=== PATIENT | male | born 1930 | race Caucasian/White ===

== ENCOUNTER 2017-12-19 09:53 | Inpatient (IN) ==
[2017-12-19] MEDS ORDERED: HYDROmorphone 2 MG/1 ML VIAL ONE (10:37)
[2017-12-19] MEDS ORDERED: ONDANSETRON 4 MG/2 ML VIAL ONE (10:37)
[2017-12-19] MEDS ORDERED: ONDANSETRON 4 MG/2 ML VIAL IV STA (10:46)
[2017-12-19] MEDS ORDERED: HYDROmorphone 2 MG/1 ML VIAL IV STA ×2 (10:47→11:30)
[2017-12-19 12:15] LABS: Basophils % 0.4 % (0.0-0.8); Eosinophils # 0.1 10*3/uL (0.0-0.87); Eosinophils % 1.6 % (0.00-10.9); Hematocrit 37.9 VOL% (42.0-52.0); Hemoglobin 13.1 GM/DL (14.0-18.0); Immature Granulocytes % 0.4 %; Immature Granulocytes Absolute 0.03 #; Lymphocytes # 1.1 10*3/uL (1.4-4.0); Lymphocytes % 15.2 % (21.2-54.2); Mean Corpuscular HGB Conc 34.6 GM/DL (32-36); Mean Corpuscular Hemoglobin 34 PG (27-34); Mean Corpuscular Volume 97.2 FL (87-102); Mean Platelet Volume 12.1 FL (9.6-12.0); Monocytes # 0.6 10*3/uL (0.11-0.8); Neutrophils # 5.4 10*3/uL (1.4-7.4); Neutrophils % 74.4 % (38.7-73.9); Platelet Count 145 T/CUMM (130-400); Red Cell Distribution Width 12.8 % (9.3-17.3); White Blood Count 7.3 T/CUMM (4-12)
[2017-12-19 12:28] LABS: Albumin 3.9 G/DL (3.4-5.0); Bilirubin,Total 0.5 MG/DL (0.2-1.0); Calcium 9.1 MG/DL (8.5-10.1); Osmolality,Calculated 284.4 MOS/KG (273-304); Potassium 3.8 MMOL/L (3.5-5.1); Total Protein 7.2 G/DL (6.4-8.3)
[2017-12-19] MEDS ORDERED: ACETAMINOPHEN 325 MG TABLET PO PRN (14:11)
[2017-12-19] MEDS ORDERED: ONDANSETRON 4 MG/2 ML VIAL IV PRN (14:11)
[2017-12-19] MEDS ORDERED: HYDROmorphone 2 MG/1 ML VIAL IV ONE (15:35)
[2017-12-19] MEDS ORDERED: oxyCODONE IR 5 MG TABLET PO PRN (16:34)
[2017-12-19] MEDS ORDERED: MORPHINE 4 MG/1 ML VIAL ONE (18:58)
[2017-12-19 19:34] LABS: Apearance,Urine CLEAR (Clear); Bilirubin,Urine Negative (Negative); Blood, Urine Moderate mg/dL (Negative); Glucose,Urine (UA) Negative (Negative); Ketones,Urine 5 mg/dL (Negative); Mucus,Urine Occasional /LPF (Occasional); Nitrite,Urine Negative (Negative); Protein,Urine 30 MG/DL; RBC,Urine 27 /HPF (0-4); Squamous Epithelial Cell,Urine Occasional /HPF (0-10); Urine Color Yellow (Yellow); Urine Specific Gravity 1.017 (1.001-1.035); WBC,Urine 1 /HPF (0-6)
[2017-12-19] MEDS ORDERED: ACETAMINOPHEN INJ 1,000 MG in PREMIX 1 EACH IV SCH (22:00)
[2017-12-19] MEDS: MORPHINE 4 MG/1 ML VIAL IV PRN (22:02)
[2017-12-20] MEDS: TEMAZEPAM 15 MG CAPSULE PO PRN ×2 (00:44→21:20)
[2017-12-20] MEDS: DEXTROSE 5% LACTATED RINGERS 1,000 ML IV SCH ×5 (01:20→22:46)
[2017-12-20] MEDS: MORPHINE 4 MG/1 ML VIAL IV PRN ×2 (02:39→06:41)
[2017-12-20 04:01] LABS: Basophils % 0.4 % (0.0-0.8); Eosinophils # 0.1 10*3/uL (0.0-0.87); Eosinophils % 0.7 % (0.00-10.9); Hematocrit 33.3 VOL% (42.0-52.0); Hemoglobin 11.7 GM/DL (14.0-18.0); Immature Granulocytes % 0.2 %; Immature Granulocytes Absolute 0.02 #; Lymphocytes % 11.9 % (21.2-54.2); Mean Corpuscular HGB Conc 35.1 GM/DL (32-36); Mean Corpuscular Hemoglobin 33 PG (27-34); Mean Corpuscular Volume 94.6 FL (87-102); Mean Platelet Volume 11.5 FL (9.6-12.0); Monocytes % 12.4 % (1.7-12.7); Neutrophils # 6.2 10*3/uL (1.4-7.4); Neutrophils % 74.4 % (38.7-73.9); Platelet Count 126 T/CUMM (130-400); Red Blood Count 3.52 MC/CUMM (3.8-5.5); Red Cell Distribution Width 12.8 % (9.3-17.3); White Blood Count 8.3 T/CUMM (4-12)
[2017-12-20 04:12] LABS: PT Patient Result 10.9 SECS; Partial Thromboplastin Time 24.7 SECS (0-40)
[2017-12-20 04:33] LABS: Calcium 8.6 MG/DL (8.5-10.1); Osmolality,Calculated 281.5 MOS/KG (273-304); Risk Ratio 2.75; Thyroid Stimulating Hormone 1.53 uIU/ml (0.358-3.74); VLDL CHOLESTEROL 9.8 MG/DL
[2017-12-20] MEDS ORDERED: VANCOMYCIN INJ 1,000 MG in SODIUM CHLORIDE 0.9% 250 ML IV ONE (06:00)
[2017-12-20] MEDS ORDERED: ceFAZolin 1,000 MG in SYRINGE 1 EACH IV ONE (06:00)
[2017-12-20] MEDS ORDERED: SODIUM CHLORIDE 0.9% 250 ML IV ONE (08:28)
[2017-12-20] MEDS: PANTOPRAZOLE 40 MG TABLET PO SCH (08:54)
[2017-12-20] MEDS ORDERED: ROPIVACAINE 0.5% 30 ML VIAL ONE (09:21)
[2017-12-20] MEDS ORDERED: BACITRACIN OINT 0.9 GM PACK TOP ONE (10:19)
[2017-12-20] MEDS ORDERED: TRANEXAMIC ACID 1,000 MG/10 ML VIAL ONE (10:19)
[2017-12-20] MEDS ORDERED: ACETAMINOPHEN 500 MG TABLET PO SCH (11:30)
[2017-12-20] MEDS ORDERED: ONDANSETRON 4 MG/2 ML VIAL IV PRN (11:38)
[2017-12-20] MEDS ORDERED: oxyCODONE IR 5 MG TABLET PO PRN (11:38)
[2017-12-20] MEDS ORDERED: MAGNESIUM HYDROXIDE SUSP 30 ML UDCUP PO PRN (11:38)
[2017-12-20] MEDS ORDERED: ONDANSETRON 4 MG/2 ML VIAL ONE (11:44)
[2017-12-20] MEDS ORDERED: MIDAZOLAM 2 MG/2 ML VIAL ONE (11:44)
[2017-12-20] MEDS ORDERED: fentaNYL 100 MCG/2 ML VIAL ONE ×2 (11:44→11:45)
[2017-12-20] MEDS ORDERED: SEVOFLURANE 1 UNIT/15 MINUTE INH ONE (11:44)
[2017-12-20] MEDS ORDERED: PROPOFOL 200 MG/20 ML VIAL IV ONE (11:44)
[2017-12-20] MEDS ORDERED: ACETAMINOPHEN 1,000 MG/100 ML VIAL IV ONE (11:44)
[2017-12-20] MEDS ORDERED: PHENYLEPHRINE 1 MG/10 ML SYRINGE IV ONE (11:45)
[2017-12-20] MEDS ORDERED: ROCURONIUM 100 MG/10 ML VIAL IV ONE (11:45)
[2017-12-20] MEDS ORDERED: LACTATED RINGERS 1,000 ML IV ONE (11:45)
[2017-12-20] MEDS: KETOROLAC 15 MG/1 ML VIAL IV SCH ×2 (14:42→21:25)
[2017-12-20] MEDS: ceFAZolin 1,000 MG in SYRINGE 1 EACH IV SCH (14:43)
[2017-12-20] MEDS: ACETAMINOPHEN 500 MG TABLET PO SCH ×2 (14:43→21:20)
[2017-12-20] MEDS ORDERED: LORATADINE 10 MG TABLET PO PRN (15:46)
[2017-12-20] MEDS: DOCUSATE SODIUM 100 MG CAPSULE PO SCH (21:20)
[2017-12-20] MEDS: TERAZOSIN 5 MG CAPSULE PO SCH (21:20)
[2017-12-21] MEDS: ceFAZolin 1,000 MG in SYRINGE 1 EACH IV SCH (00:24)
[2017-12-21] MEDS: DEXTROSE 5% LACTATED RINGERS 1,000 ML IV SCH (01:53)
[2017-12-21] MEDS ORDERED: FONDAPARINUX 2.5 MG/0.5 ML SYRINGE SUBCUT SCH (05:40)
[2017-12-21] MEDS: KETOROLAC 15 MG/1 ML VIAL IV SCH (06:14)
[2017-12-21] MEDS: ACETAMINOPHEN 500 MG TABLET PO SCH (06:15)
[2017-12-21 06:26] LABS: Calcium 7.9 MG/DL (8.5-10.1); Osmolality,Calculated 283.4 MOS/KG (273-304); Potassium 3.9 MMOL/L (3.5-5.1)
[2017-12-21 07:26] LABS: Basophils % 0.3 % (0.0-0.8); Eosinophils # 0.1 10*3/uL (0.0-0.87); Eosinophils % 1.1 % (0.00-10.9); Hematocrit 29.1 VOL% (42.0-52.0); Hemoglobin 9.9 GM/DL (14.0-18.0); Immature Granulocytes % 0.6 %; Immature Granulocytes Absolute 0.05 #; Lymphocytes # 0.6 10*3/uL (1.4-4.0); Lymphocytes % 7.2 % (21.2-54.2); Mean Corpuscular Hemoglobin 34 PG (27-34); Mean Corpuscular Volume 99.7 FL (87-102); Mean Platelet Volume 11.7 FL (9.6-12.0); Monocytes # 1.1 10*3/uL (0.11-0.8); Monocytes % 11.8 % (1.7-12.7); Neutrophils # 7.1 10*3/uL (1.4-7.4); Platelet Count 88 T/CUMM (130-400); Red Blood Count 2.92 MC/CUMM (3.8-5.5); Red Cell Distribution Width 12.6 % (9.3-17.3)
[2017-12-21 07:59] LABS: Platelet Estimate Adequate
[2017-12-21] MEDS ORDERED: MAGNESIUM SULF RIDER 2 GM in PREMIX 1 EACH IV PRN (08:28)
[2017-12-21] MEDS ORDERED: MAGNESIUM SULF RIDER 4 GM in PREMIX 1 EACH IV PRN (08:28)
[2017-12-21] MEDS: PANTOPRAZOLE 40 MG TABLET PO SCH (09:11)
[2017-12-21] MEDS: DOCUSATE SODIUM 100 MG CAPSULE PO SCH ×2 (09:11→21:28)
[2017-12-21] MEDS: MULTIVITAMIN (CENTRUM) TABLET PO SCH (09:11)
[2017-12-21] MEDS: TRANDOLAPRIL 2 MG TABLET PO SCH (09:47)
[2017-12-21] MEDS ORDERED: KETOROLAC 15 MG/1 ML VIAL IV SCH (11:00)
[2017-12-21] MEDS ORDERED: ACETAMINOPHEN 500 MG TABLET PO SCH (11:00)
[2017-12-21] MEDS: MORPHINE 4 MG/1 ML VIAL IV PRN (16:12)
[2017-12-21] MEDS: CELECOXIB 200 MG CAPSULE PO SCH (18:01)
[2017-12-21] MEDS: TEMAZEPAM 15 MG CAPSULE PO PRN (21:27)
[2017-12-21] MEDS: TERAZOSIN 5 MG CAPSULE PO SCH (21:28)
[2017-12-22 03:28] LABS: Basophils % 0.4 % (0.0-0.8); Eosinophils # 0.3 10*3/uL (0.0-0.87); Eosinophils % 4.7 % (0.00-10.9); Hematocrit 26.7 VOL% (42.0-52.0); Hemoglobin 9.1 GM/DL (14.0-18.0); Immature Granulocytes % 0.7 %; Immature Granulocytes Absolute 0.05 #; Lymphocytes # 0.9 10*3/uL (1.4-4.0); Lymphocytes % 12.3 % (21.2-54.2); Mean Corpuscular HGB Conc 34.1 GM/DL (32-36); Mean Corpuscular Hemoglobin 34 PG (27-34); Mean Corpuscular Volume 98.2 FL (87-102); Mean Platelet Volume 11.8 FL (9.6-12.0); Monocytes # 0.8 10*3/uL (0.11-0.8); Monocytes % 11.7 % (1.7-12.7); Neutrophils % 70.2 % (38.7-73.9); Platelet Count 73 T/CUMM (130-400); Red Blood Count 2.72 MC/CUMM (3.8-5.5); Red Cell Distribution Width 12.5 % (9.3-17.3); White Blood Count 7.2 T/CUMM (4-12)
[2017-12-22 04:39] LABS: Band Neutrophils 3 % (0-10); Eosinophils 6 % (0-10); Lymphocytes 15 % (20-55); Segmented Neutrophils 65 % (50-85); Total Cells Counted 100
[2017-12-22 04:41] LABS: Acanthocytes 1+; Anisocytosis 1+; Platelet Estimate Decreased
[2017-12-22] MEDS: CELECOXIB 200 MG CAPSULE PO SCH (09:18)
[2017-12-22] MEDS: DOCUSATE SODIUM 100 MG CAPSULE PO SCH ×2 (09:18→21:03)
[2017-12-22] MEDS: APIXABAN 2.5 MG TABLET PO SCH ×2 (09:19→21:03)
[2017-12-22] MEDS: MULTIVITAMIN (CENTRUM) TABLET PO SCH (09:19)
[2017-12-22] MEDS: PANTOPRAZOLE 40 MG TABLET PO SCH (09:19)
[2017-12-22] MEDS: TRANDOLAPRIL 2 MG TABLET PO SCH (09:19)
[2017-12-22] MEDS ORDERED: POLYETHYLENE GLYCOL POWDER 17 GM PACK PO SCH (21:00)
[2017-12-22] MEDS: TEMAZEPAM 15 MG CAPSULE PO PRN (21:03)
[2017-12-22] MEDS: TERAZOSIN 5 MG CAPSULE PO SCH (21:03)
[2017-12-23 06:27] LABS: Basophils % 0.5 % (0.0-0.8); Eosinophils # 0.4 10*3/uL (0.0-0.87); Eosinophils % 6.7 % (0.00-10.9); Hematocrit 28.8 VOL% (42.0-52.0); Immature Granulocytes % 0.6 %; Immature Granulocytes Absolute 0.04 #; Lymphocytes # 1.2 10*3/uL (1.4-4.0); Lymphocytes % 18.2 % (21.2-54.2); Mean Corpuscular HGB Conc 34.7 GM/DL (32-36); Mean Corpuscular Hemoglobin 34 PG (27-34); Mean Platelet Volume 12.1 FL (9.6-12.0); Monocytes # 0.7 10*3/uL (0.11-0.8); Monocytes % 10.3 % (1.7-12.7); Neutrophils # 4.1 10*3/uL (1.4-7.4); Neutrophils % 63.7 % (38.7-73.9); Platelet Count 92 T/CUMM (130-400); Red Blood Count 2.97 MC/CUMM (3.8-5.5); Red Cell Distribution Width 12.3 % (9.3-17.3); White Blood Count 6.4 T/CUMM (4-12)
[2017-12-23 07:09] LABS: Anisocytosis 1+; Platelet Estimate Decreased; Poikilocytosis 1+
[2017-12-23] MEDS: MULTIVITAMIN (CENTRUM) TABLET PO SCH (10:22)
[2017-12-23] MEDS: PANTOPRAZOLE 40 MG TABLET PO SCH (10:22)
[2017-12-23] MEDS: APIXABAN 2.5 MG TABLET PO SCH (10:23)
[2017-12-23] MEDS: TRANDOLAPRIL 2 MG TABLET PO SCH (10:23)
[2017-12-23] MEDS: CELECOXIB 200 MG CAPSULE PO SCH (10:23)
[2017-12-23] MEDS: DOCUSATE SODIUM 100 MG CAPSULE PO SCH (10:26)
[2017-12-23 12:24] VITALS: BP 106/51
== END 2017-12-23 15:46 | disposition home health service (06) | DRG 470 ==
LOC: N.ED 09:53 → N.EDINP 12:45 → N.3E 14:11
PROVIDERS: ADMIT Internal Medicine; ATTEND Internal Medicine

== ENCOUNTER 2019-05-18 21:30 | Inpatient (IN) ==
[2019-05-18] MEDS ORDERED: MORPHINE 4 MG/1 ML VIAL IV STA (21:54)
[2019-05-18 22:40] LABS: Basophils % 0.4 % (0.0-0.8); Eosinophils # 0.1 10*3/uL (0.0-0.87); Eosinophils % 1.3 % (0.00-10.9); Hematocrit 34.8 VOL% (42.0-52.0); Hemoglobin 11.3 GM/DL (14.0-18.0); Immature Granulocytes % 0.4 %; Immature Granulocytes Absolute 0.03 #; Lymphocytes # 0.9 10*3/uL (1.4-4.0); Lymphocytes % 12.6 % (21.2-54.2); Mean Corpuscular HGB Conc 32.5 GM/DL (32-36); Mean Platelet Volume 11.5 FL (9.6-12.0); Monocytes % 7.1 % (1.7-12.7); Neutrophils % 78.2 % (38.7-73.9); Platelet Count 127 T/CUMM (130-400); Red Blood Count 3.55 MC/CUMM (3.8-5.5); Red Cell Distribution Width 13.8 % (9.3-17.3); White Blood Count 6.9 T/CUMM (4-12)
[2019-05-18 22:48] LABS: INR 1.1; PT Patient Result 11.7 SECS (9.6-12.2)
[2019-05-18 23:19] LABS: Calcium 9.4 MG/DL (8.5-10.1); Osmolality,Calculated 288.3 MOS/KG (273-304)
[2019-05-18] MEDS ORDERED: HYDROmorphone 2 MG/1 ML VIAL IV STA (23:36)
[2019-05-19] MEDS ORDERED: ACETAMINOPHEN 325 MG TABLET PO PRN ×2 (01:30→08:20)
[2019-05-19] MEDS ORDERED: DOCUSATE SODIUM 100 MG CAPSULE PO PRN (01:30)
[2019-05-19] MEDS ORDERED: SODIUM CHLORIDE 0.9% 1,000 ML IV SCH (01:30)
[2019-05-19] MEDS ORDERED: ONDANSETRON 4 MG/2 ML VIAL IV PRN ×2 (01:30→12:18)
[2019-05-19] MEDS: HYDROmorphone 2 MG/1 ML VIAL IV PRN ×2 (02:48→06:09)
[2019-05-19 06:22] LABS: Basophils % 0.1 % (0.0-0.8); Hematocrit 33.7 VOL% (42.0-52.0); Hemoglobin 11.1 GM/DL (14.0-18.0); Immature Granulocytes % 0.5 %; Immature Granulocytes Absolute 0.04 #; Lymphocytes # 0.3 10*3/uL (1.4-4.0); Lymphocytes % 3.5 % (21.2-54.2); Mean Corpuscular HGB Conc 32.9 GM/DL (32-36); Mean Corpuscular Volume 97.7 FL (87-102); Mean Platelet Volume 11.8 FL (9.6-12.0); Monocytes % 7.1 % (1.7-12.7); Neutrophils % 88.8 % (38.7-73.9); Platelet Count 135 T/CUMM (130-400); Red Blood Count 3.45 MC/CUMM (3.8-5.5); White Blood Count 7.8 T/CUMM (4-12)
[2019-05-19] MEDS ORDERED: ceFAZolin 2,000 MG in PREMIX 1 EACH IV ONE (06:31)
[2019-05-19 06:46] LABS: Acanthocytes Few; Band Neutrophils 1 % (0-10); Lymphocytes 3 % (20-55); Segmented Neutrophils 90 % (50-85); Total Cells Counted 100
[2019-05-19 06:47] LABS: Macrocytosis Slight; Platelet Estimate Adequate
[2019-05-19 06:51] LABS: Albumin 3.8 G/DL (3.4-5.0); Calcium 9.1 MG/DL (8.5-10.1); Osmolality,Calculated 290.3 MOS/KG (273-304)
[2019-05-19] MEDS ORDERED: RANITIDINE 150 MG TABLET PO ONE (08:19)
[2019-05-19 10:04] LABS: Osmolality,Calculated 288.4 MOS/KG (273-304)
[2019-05-19] MEDS ORDERED: BACITRACIN OINT 0.9 GM PACK TOP ONE (11:10)
[2019-05-19] MEDS ORDERED: MAGNESIUM HYDROXIDE SUSP 30 ML UDCUP PO PRN (11:39)
[2019-05-19] MEDS ORDERED: MORPHINE 4 MG/1 ML VIAL IV PRN ×2 (11:40)
[2019-05-19] MEDS ORDERED: LIDOCAINE 2% 5 ML VIAL ONE (11:51)
[2019-05-19] MEDS ORDERED: propofoL 200 MG/20 ML VIAL IV ONE (11:51)
[2019-05-19] MEDS ORDERED: SEVOFLURANE 1 UNIT/15 MINUTE INH ONE (11:51)
[2019-05-19] MEDS ORDERED: GLYCOPYRROLATE 0.4 MG/2 ML VIAL ONE (11:52)
[2019-05-19] MEDS ORDERED: ROCURONIUM 100 MG/10 ML VIAL IV ONE (11:52)
[2019-05-19] MEDS ORDERED: ONDANSETRON 4 MG/2 ML VIAL ONE (11:52)
[2019-05-19] MEDS ORDERED: NEOSTIGMINE 10 MG/10 ML VIAL ONE (11:52)
[2019-05-19] MEDS ORDERED: fentaNYL 100 MCG/2 ML VIAL ONE (11:52)
[2019-05-19] MEDS ORDERED: HYDROmorphone 2 MG/1 ML VIAL ONE (12:16)
[2019-05-19] MEDS ORDERED: HYDROmorphone 2 MG/1 ML VIAL IV PRN (12:18)
[2019-05-19] MEDS: KETOROLAC 15 MG/1 ML VIAL IV SCH ×2 (13:49→17:36)
[2019-05-19] MEDS: LACTATED RINGERS 1,000 ML IV SCH (13:50)
[2019-05-19] MEDS: ceFAZolin 2,000 MG in PREMIX 1 EACH IV SCH (17:37)
[2019-05-20] MEDS: ceFAZolin 2,000 MG in PREMIX 1 EACH IV SCH (00:04)
[2019-05-20] MEDS: KETOROLAC 15 MG/1 ML VIAL IV SCH ×2 (00:04→05:27)
[2019-05-20] MEDS: LACTATED RINGERS 1,000 ML IV SCH ×2 (02:48→19:27)
[2019-05-20 05:59] LABS: Basophils % 0.6 % (0.0-0.8); Eosinophils # 0.1 10*3/uL (0.0-0.87); Eosinophils % 2.1 % (0.00-10.9); Hematocrit 28.4 VOL% (42.0-52.0); Immature Granulocytes % 0.7 %; Immature Granulocytes Absolute 0.05 #; Lymphocytes # 1.1 10*3/uL (1.4-4.0); Lymphocytes % 16.8 % (21.2-54.2); Mean Corpuscular HGB Conc 31.7 GM/DL (32-36); Mean Corpuscular Volume 101.4 FL (87-102); Mean Platelet Volume 11.4 FL (9.6-12.0); Monocytes % 14.4 % (1.7-12.7); Neutrophils % 65.4 % (38.7-73.9); White Blood Count 6.7 T/CUMM (4-12)
[2019-05-20 06:17] LABS: Calcium 8.4 MG/DL (8.5-10.1); Osmolality,Calculated 287.4 MOS/KG (273-304)
[2019-05-20 06:27] LABS: Platelet Count 100 T/CUMM (130-400)
[2019-05-20] MEDS ORDERED: APIXABAN 2.5 MG TABLET PO SCH (09:00)
[2019-05-20] MEDS: RIVAROXABAN 10 MG TABLET PO SCH (09:44)
[2019-05-21 06:21] LABS: Basophils # 0.1 10*3/uL (0.0-0.2); Basophils % 0.7 % (0.0-0.8); Eosinophils # 0.3 10*3/uL (0.0-0.87); Eosinophils % 3.7 % (0.00-10.9); Hematocrit 26.1 VOL% (42.0-52.0); Hemoglobin 8.7 GM/DL (14.0-18.0); Immature Granulocytes % 0.4 %; Immature Granulocytes Absolute 0.03 #; Lymphocytes # 1.3 10*3/uL (1.4-4.0); Lymphocytes % 17.6 % (21.2-54.2); Mean Corpuscular HGB Conc 33.3 GM/DL (32-36); Mean Corpuscular Volume 98.9 FL (87-102); Mean Platelet Volume 11.9 FL (9.6-12.0); Monocytes % 14.2 % (1.7-12.7); Neutrophils % 63.4 % (38.7-73.9); Red Blood Count 2.64 MC/CUMM (3.8-5.5); Red Cell Distribution Width 13.5 % (9.3-17.3); White Blood Count 7.5 T/CUMM (4-12)
[2019-05-21 06:30] LABS: Platelet Count 88 T/CUMM (130-400)
[2019-05-21 06:43] LABS: Acanthocytes Few
[2019-05-21 06:44] LABS: Hypochromasia 1+; Macrocytosis Slight; Platelet Estimate Decreased
[2019-05-21 06:45] LABS: Ovalocytes Few
[2019-05-21 08:36] LABS: Calcium 8.3 MG/DL (8.5-10.1); Osmolality,Calculated 279.8 MOS/KG (273-304)
[2019-05-21] MEDS: RIVAROXABAN 10 MG TABLET PO SCH (10:57)
[2019-05-21 11:34] LABS: Hematocrit 25.5 VOL% (42.0-52.0); Hemoglobin 8.3 GM/DL (14.0-18.0)
[2019-05-21 19:08] LABS: Hematocrit 27.3 VOL% (42.0-52.0); Hemoglobin 8.9 GM/DL (14.0-18.0)
[2019-05-22 05:35] LABS: Basophils % 0.4 % (0.0-0.8); Eosinophils # 0.3 10*3/uL (0.0-0.87); Eosinophils % 5.1 % (0.00-10.9); Hematocrit 24.7 VOL% (42.0-52.0); Hemoglobin 8.4 GM/DL (14.0-18.0); Immature Granulocytes % 0.1 %; Immature Granulocytes Absolute 0.01 #; Lymphocytes % 15.1 % (21.2-54.2); Mean Corpuscular Volume 96.5 FL (87-102); Mean Platelet Volume 11.8 FL (9.6-12.0); Monocytes % 15.2 % (1.7-12.7); Neutrophils % 64.1 % (38.7-73.9); Platelet Count 94 T/CUMM (130-400); Red Blood Count 2.56 MC/CUMM (3.8-5.5); Red Cell Distribution Width 13.2 % (9.3-17.3); White Blood Count 6.7 T/CUMM (4-12)
[2019-05-22 06:04] LABS: Eosinophils 7 % (0-10); Hypochromasia 1+; Lymphocytes 12 % (20-55); Segmented Neutrophils 69 % (50-85); Total Cells Counted 100
[2019-05-22 06:05] LABS: Acanthocytes Few; Macrocytosis Slight; Ovalocytes Slight; Platelet Estimate Decreased
[2019-05-22] MEDS ORDERED: RIVAROXABAN 10 MG TABLET PO SCH (09:00)
[2019-05-22 10:52] LABS: Hematocrit 27.6 VOL% (42.0-52.0); Hemoglobin 9.1 GM/DL (14.0-18.0)
[2019-05-22] MEDS: TERAZOSIN 5 MG CAPSULE PO SCH (16:47)
[2019-05-22] MEDS: lisinopriL 5 MG TABLET PO SCH (16:47)
[2019-05-22 20:20] LABS: Apearance,Urine CLEAR (Clear); Bilirubin,Urine Negative (Negative); Blood, Urine Moderate mg/dL (Negative); Glucose,Urine (UA) Negative (Negative); Hyaline Casts,Urine 1 /LPF (0-3); Ketones,Urine Negative (Negative); Mucus,Urine Few /LPF (Occasional); Nitrite,Urine Negative (Negative); Protein,Urine 30 MG/DL; RBC,Urine 12 /HPF (0-4); Squamous Epithelial Cell,Urine Occasional /HPF (0-10); Urine Color Dark Yellow (Yellow); Urine Specific Gravity 1.023 (1.001-1.035); WBC,Urine 1 /HPF (0-6)
[2019-05-23] MEDS: TERAZOSIN 5 MG CAPSULE PO SCH (08:28)
[2019-05-23] MEDS: lisinopriL 5 MG TABLET PO SCH (08:28)
[2019-05-23] MEDS ORDERED: GLYCERIN ADULT SUPP RECTAL ONE (09:54)
[2019-05-23 11:56] VITALS: BP 119/61
== END 2019-05-23 13:50 | disposition swing bed (61) | DRG 481 ==
LOC: EDUNIT# → EDBD → N.ED 21:30 → N.EDINP 23:38 → N.3E 05-19 00:28
PROVIDERS: ADMIT Family Medicine; ATTEND Family Medicine

== ENCOUNTER 2020-07-24 13:07 | Inpatient (IN) ==
[2020-07-24] MEDS ORDERED: MORPHINE 4 MG/1 ML VIAL IV STA (15:36)
[2020-07-24] MEDS ORDERED: ONDANSETRON 4 MG/2 ML VIAL IV STA (15:37)
[2020-07-24] MEDS ORDERED: ONDANSETRON 4 MG/2 ML VIAL ONE (15:37)
[2020-07-24] MEDS ORDERED: MORPHINE 4 MG/1 ML VIAL ONE (15:38)
[2020-07-24] MEDS ORDERED: ONDANSETRON 4 MG/2 ML VIAL IV PRN (15:39)
[2020-07-24] MEDS ORDERED: ACETAMINOPHEN 325 MG TABLET PO PRN (15:39)
[2020-07-24] MEDS ORDERED: DEXTROSE 50% 25 GM/50 ML VIAL IV PRN (15:39)
[2020-07-24] MEDS ORDERED: GLUCAGON 1 MG VIAL IM PRN (15:39)
[2020-07-24 16:06] LABS: INR 1.1; PT Patient Result 11.7 SECS (10.5-12.0); Partial Thromboplastin Time 25.5 SECS (23.9-33.8)
[2020-07-24] MEDS: PANTOPRAZOLE 40 MG TABLET PO SCH (16:38)
[2020-07-24] MEDS: ENOXAPARIN 40 MG/0.4 ML SYRINGE SUBCUT SCH (16:38)
[2020-07-24 17:05] LABS: Bilirubin,Urine Negative (Negative); Blood, Urine Negative (Negative); Glucose,Urine (UA) Negative (Negative); Hyaline Casts,Urine 3 /LPF (0-3); Ketones,Urine Negative (Negative); Mucus,Urine Occasional /LPF (Occasional); Nitrite,Urine Negative (Negative); Protein,Urine Negative; Squamous Epithelial Cell,Urine Occasional /HPF (0-10); Urine Appearance CLEAR (Clear); Urine Color Yellow (Yellow); Urine Specific Gravity 1.017 (1.001-1.035)
[2020-07-24] MEDS: SODIUM CHLORIDE 0.9% 1,000 ML IV SCH (17:28)
[2020-07-25] MEDS: SODIUM CHLORIDE 0.9% 1,000 ML IV SCH ×3 (03:11→17:58)
[2020-07-25 05:12] LABS: Basophils # 0.1 10*3/uL (0.0-0.2); Eosinophils # 0.1 10*3/uL (0.0-0.87); Eosinophils % 2.8 % (0.00-10.9); Hematocrit 29.6 VOL% (42.0-52.0); Hemoglobin 8.7 GM/DL (14.0-18.0); Immature Granulocytes % 0.6 %; Immature Granulocytes Absolute 0.03 #; Lymphocytes # 1.1 10*3/uL (1.4-4.0); Lymphocytes % 22.7 % (21.2-54.2); Mean Corpuscular HGB Conc 29.4 GM/DL (32-36); Mean Corpuscular Volume 99.7 FL (87-102); Mean Platelet Volume 12.3 FL (9.6-12.0); Monocytes % 20.3 % (1.7-12.7); Neutrophils % 52.6 % (38.7-73.9); Platelet Count 103 T/CUMM (130-400); Red Blood Count 2.97 MC/CUMM (3.8-5.5)
[2020-07-25 05:36] LABS: Albumin 2.7 G/DL (3.4-5.0); Bilirubin,Total 1.2 MG/DL (0.2-1.0); Calcium 8.2 MG/DL (8.5-10.1); Osmolality,Calculated 278.7 MOS/KG (273-304); Potassium 3.7 MMOL/L (3.5-5.1); Total Protein 5.7 G/DL (6.4-8.2)
[2020-07-25 05:48] LABS: Band Neutrophils 1 % (0-10); Burr Cells Slight; Eosinophils 3 % (0-10); Hypochromasia 1+; Lymphocytes 21 % (20-55); Microcytosis 1+; Ovalocytes Slight; Platelet Estimate Decreased; Segmented Neutrophils 59 % (50-85); Total Cells Counted 100
[2020-07-25] MEDS: TERAZOSIN 5 MG CAPSULE PO SCH ×2 (06:10→20:50)
[2020-07-25] MEDS: PANTOPRAZOLE 40 MG TABLET PO SCH (09:53)
[2020-07-25] MEDS: hydroCHLOROthiazide 12.5 MG CAPSULE PO SCH (09:53)
[2020-07-25] MEDS: lisinopriL 5 MG TABLET PO SCH (09:53)
[2020-07-25] MEDS: ENOXAPARIN 40 MG/0.4 ML SYRINGE SUBCUT SCH (15:51)
[2020-07-26] MEDS: SODIUM CHLORIDE 0.9% 1,000 ML IV SCH ×4 (00:47→21:30)
[2020-07-26 05:26] LABS: Eosinophils # 0.2 10*3/uL (0.0-0.87); Eosinophils % 4.9 % (0.00-10.9); Hematocrit 23.3 VOL% (42.0-52.0); Hemoglobin 7.6 GM/DL (14.0-18.0); Immature Granulocytes % 0.3 %; Immature Granulocytes Absolute 0.01 #; Lymphocytes % 25.8 % (21.2-54.2); Mean Corpuscular HGB Conc 32.6 GM/DL (32-36); Mean Corpuscular Volume 92.5 FL (87-102); Mean Platelet Volume 11.9 FL (9.6-12.0); Monocytes % 16.1 % (1.7-12.7); Neutrophils % 51.9 % (38.7-73.9); Platelet Count 86 T/CUMM (130-400); Red Blood Count 2.52 MC/CUMM (3.8-5.5); Red Cell Distribution Width 20.1 % (9.3-17.3); White Blood Count 3.9 T/CUMM (4-12)
[2020-07-26 05:50] LABS: Albumin 2.5 G/DL (3.4-5.0); Bilirubin,Total 1.1 MG/DL (0.2-1.0); Calcium 7.9 MG/DL (8.5-10.1); Osmolality,Calculated 276.7 MOS/KG (273-304); Potassium 3.6 MMOL/L (3.5-5.1); Total Protein 5.2 G/DL (6.4-8.2)
[2020-07-26 05:52] LABS: Eosinophils 4 % (0-10); Hypochromasia 2+; Lymphocytes 32 % (20-55); Microcytosis 1+; Ovalocytes Slight; Platelet Estimate Decreased; Segmented Neutrophils 52 % (50-85); Total Cells Counted 100
[2020-07-26] MEDS: hydroCHLOROthiazide 12.5 MG CAPSULE PO SCH (09:19)
[2020-07-26] MEDS: PANTOPRAZOLE 40 MG TABLET PO SCH (09:19)
[2020-07-26] MEDS: lisinopriL 5 MG TABLET PO SCH (09:20)
[2020-07-26 10:06] LABS: % Iron Saturation 9.9 % (18-50)
[2020-07-26 10:17] LABS: Eosinophils # 0.2 10*3/uL (0.0-0.87); Eosinophils % 4.1 % (0.00-10.9); Hematocrit 25.7 VOL% (42.0-52.0); Hemoglobin 7.8 GM/DL (14.0-18.0); Immature Granulocytes % 0.5 %; Immature Granulocytes Absolute 0.02 #; Lymphocytes # 1.1 10*3/uL (1.4-4.0); Lymphocytes % 26.2 % (21.2-54.2); Mean Corpuscular HGB Conc 30.4 GM/DL (32-36); Mean Platelet Volume 12.2 FL (9.6-12.0); Neutrophils % 52.2 % (38.7-73.9); Red Blood Count 2.65 MC/CUMM (3.8-5.5); White Blood Count 4.1 T/CUMM (4-12)
[2020-07-26 10:18] LABS: Platelet Count 100 T/CUMM (130-400)
[2020-07-26 10:37] LABS: Folate 12.72 NG/ML (5.38-24.0); Vitamin B12 208 PG/ML (211-911)
[2020-07-26 10:41] LABS: Burr Cells Slight; Eosinophils 5 % (0-10); Hypochromasia 1+; Lymphocytes 28 % (20-55); Microcytosis 1+; Ovalocytes Slight; Platelet Estimate Decreased; Segmented Neutrophils 57 % (50-85); Total Cells Counted 100
[2020-07-26 11:15] LABS: Sedimentation Rate-Westergren 38 MM/HR (0-20)
[2020-07-26 12:48] LABS: Hemoglobin A1 (Alkaline) 97.7 % (96.5-98.5); Hemoglobin A2 (Alkaline) 2.3 % (1.5-3.5)
[2020-07-26] MEDS ORDERED: ZINC OXIDE PASTE 113 GM TUBE TOP PRN (15:41)
[2020-07-26] MEDS: ENOXAPARIN 40 MG/0.4 ML SYRINGE SUBCUT SCH (15:57)
[2020-07-27] MEDS: SODIUM CHLORIDE 0.9% 1,000 ML IV SCH ×2 (04:00→17:08)
[2020-07-27 05:30] LABS: Basophils % 0.7 % (0.0-0.8); Eosinophils # 0.1 10*3/uL (0.0-0.87); Eosinophils % 3.4 % (0.00-10.9); Hematocrit 23.9 VOL% (42.0-52.0); Hemoglobin 7.5 GM/DL (14.0-18.0); Immature Granulocytes % 0.5 %; Immature Granulocytes Absolute 0.02 #; Lymphocytes # 0.9 10*3/uL (1.4-4.0); Lymphocytes % 22.4 % (21.2-54.2); Mean Corpuscular HGB Conc 31.4 GM/DL (32-36); Mean Corpuscular Volume 92.6 FL (87-102); Mean Platelet Volume 11.8 FL (9.6-12.0); Monocytes % 15.4 % (1.7-12.7); Neutrophils % 57.6 % (38.7-73.9); Platelet Count 100 T/CUMM (130-400); Red Blood Count 2.58 MC/CUMM (3.8-5.5); Red Cell Distribution Width 19.9 % (9.3-17.3); White Blood Count 4.1 T/CUMM (4-12)
[2020-07-27 05:56] LABS: Albumin 2.2 G/DL (3.4-5.0); Calcium 8.2 MG/DL (8.5-10.1); Osmolality,Calculated 280.4 MOS/KG (273-304); Potassium 3.5 MMOL/L (3.5-5.1); Total Protein 5.2 G/DL (6.4-8.2)
[2020-07-27] MEDS: lisinopriL 5 MG TABLET PO SCH (09:10)
[2020-07-27] MEDS: CYANOCOBALAMIN 500 MCG TABLET PO SCH (09:10)
[2020-07-27] MEDS: PANTOPRAZOLE 40 MG TABLET PO SCH (09:10)
[2020-07-27] MEDS: hydroCHLOROthiazide 12.5 MG CAPSULE PO SCH (09:10)
[2020-07-27] MEDS: FERROUS SULFATE 325 MG TABLET PO SCH ×2 (11:46→17:07)
[2020-07-27 19:50] LABS: Hematocrit 28.5 VOL% (42.0-52.0); Hemoglobin 9.1 GM/DL (14.0-18.0)
[2020-07-27] MEDS: TERAZOSIN 5 MG CAPSULE PO SCH (21:37)
[2020-07-28 05:28] LABS: Basophils % 0.9 % (0.0-0.8); Eosinophils # 0.2 10*3/uL (0.0-0.87); Eosinophils % 4.1 % (0.00-10.9); Hemoglobin 9.3 GM/DL (14.0-18.0); Immature Granulocytes % 0.2 %; Immature Granulocytes Absolute 0.01 #; Lymphocytes % 22.7 % (21.2-54.2); Mean Corpuscular HGB Conc 33.2 GM/DL (32-36); Mean Corpuscular Volume 89.5 FL (87-102); Mean Platelet Volume 11.5 FL (9.6-12.0); Monocytes % 13.3 % (1.7-12.7); Neutrophils % 58.8 % (38.7-73.9); Platelet Count 108 T/CUMM (130-400); Red Cell Distribution Width 19.7 % (9.3-17.3); White Blood Count 4.4 T/CUMM (4-12)
[2020-07-28 05:30] LABS: Red Blood Count 3.13 MC/CUMM (3.8-5.5)
[2020-07-28 05:39] LABS: Hypochromasia 1+; Microcytosis 1+; Platelet Estimate Decreased
[2020-07-28] MEDS: DOCUSATE SODIUM 100 MG CAPSULE PO PRN (09:05)
[2020-07-28] MEDS: FERROUS SULFATE 325 MG TABLET PO SCH ×2 (09:05→16:42)
[2020-07-28] MEDS: CYANOCOBALAMIN 500 MCG TABLET PO SCH (09:05)
[2020-07-28] MEDS: CHOLECALCIFEROL 1,000 UNIT TABLET PO SCH (09:05)
[2020-07-28] MEDS: PANTOPRAZOLE 40 MG TABLET PO SCH (09:05)
[2020-07-28] MEDS: lisinopriL 5 MG TABLET PO SCH (09:05)
[2020-07-28] MEDS: POLYETHYLENE GLYCOL POWDER 17 GM PACK PO SCH (10:20)
[2020-07-28] MEDS: FLUDROCORTISONE 0.1 MG TABLET PO SCH (10:26)
[2020-07-28] MEDS: SODIUM CHLORIDE 0.9% 1,000 ML IV SCH (13:14)
[2020-07-28] MEDS: ENOXAPARIN 40 MG/0.4 ML SYRINGE SUBCUT SCH (16:42)
[2020-07-28] MEDS: TERAZOSIN 5 MG CAPSULE PO SCH (21:28)
[2020-07-29] MEDS: ASPIRIN EC 81 MG TABLET PO SCH (09:04)
[2020-07-29] MEDS: DOCUSATE SODIUM 100 MG CAPSULE PO PRN (09:04)
[2020-07-29] MEDS: PANTOPRAZOLE 40 MG TABLET PO SCH (09:05)
[2020-07-29] MEDS: CYANOCOBALAMIN 500 MCG TABLET PO SCH (09:05)
[2020-07-29] MEDS: FERROUS SULFATE 325 MG TABLET PO SCH ×2 (09:05→16:57)
[2020-07-29] MEDS: FLUDROCORTISONE 0.1 MG TABLET PO SCH (09:05)
[2020-07-29] MEDS: CHOLECALCIFEROL 1,000 UNIT TABLET PO SCH (09:05)
[2020-07-29] MEDS: lisinopriL 5 MG TABLET PO SCH (09:06)
[2020-07-29] MEDS: SODIUM CHLORIDE 0.9% 1,000 ML IV SCH (09:12)
[2020-07-29] MEDS: POLYETHYLENE GLYCOL POWDER 17 GM PACK PO SCH (09:15)
[2020-07-29] MEDS: ENOXAPARIN 40 MG/0.4 ML SYRINGE SUBCUT SCH (16:57)
[2020-07-29] MEDS: TERAZOSIN 5 MG CAPSULE PO SCH (21:24)
[2020-07-30] MEDS: PANTOPRAZOLE 40 MG TABLET PO SCH (08:49)
[2020-07-30] MEDS: FERROUS SULFATE 325 MG TABLET PO SCH ×2 (08:49→18:22)
[2020-07-30] MEDS: FLUDROCORTISONE 0.1 MG TABLET PO SCH (08:49)
[2020-07-30] MEDS: DOCUSATE SODIUM 100 MG CAPSULE PO PRN (08:49)
[2020-07-30] MEDS: lisinopriL 5 MG TABLET PO SCH (08:50)
[2020-07-30] MEDS: CHOLECALCIFEROL 1,000 UNIT TABLET PO SCH (08:50)
[2020-07-30] MEDS: ASPIRIN EC 81 MG TABLET PO SCH (08:50)
[2020-07-30] MEDS: CYANOCOBALAMIN 500 MCG TABLET PO SCH (08:50)
[2020-07-30 09:09] LABS: Basophils % 0.9 % (0.0-0.8); Eosinophils # 0.2 10*3/uL (0.0-0.87); Eosinophils % 4.6 % (0.00-10.9); Hematocrit 30.3 VOL% (42.0-52.0); Hemoglobin 9.5 GM/DL (14.0-18.0); Immature Granulocytes % 0.5 %; Immature Granulocytes Absolute 0.02 #; Lymphocytes # 0.8 10*3/uL (1.4-4.0); Lymphocytes % 17.4 % (21.2-54.2); Mean Corpuscular HGB Conc 31.4 GM/DL (32-36); Mean Corpuscular Volume 92.1 FL (87-102); Mean Platelet Volume 11.5 FL (9.6-12.0); Monocytes % 11.2 % (1.7-12.7); Neutrophils % 65.4 % (38.7-73.9); Platelet Count 156 T/CUMM (130-400); Red Blood Count 3.29 MC/CUMM (3.8-5.5); Red Cell Distribution Width 19.1 % (9.3-17.3); White Blood Count 4.4 T/CUMM (4-12)
[2020-07-30] MEDS: WHEAT DEXTRIN POWDER 244 GM BOTTLE PO SCH (09:24)
[2020-07-30] MEDS: POLYETHYLENE GLYCOL POWDER 17 GM PACK PO SCH (09:24)
[2020-07-30 09:39] LABS: Calcium 8.8 MG/DL (8.5-10.1); Potassium 3.4 MMOL/L (3.5-5.1)
[2020-07-30] MEDS ORDERED: POTASSIUM CHLORIDE 20 MEQ TABLET PO ONE (10:30)
[2020-07-30] MEDS: ENOXAPARIN 40 MG/0.4 ML SYRINGE SUBCUT SCH (18:22)
[2020-07-30] MEDS: TERAZOSIN 5 MG CAPSULE PO SCH (21:35)
[2020-07-31] MEDS: POLYETHYLENE GLYCOL POWDER 17 GM PACK PO SCH (09:19)
[2020-07-31] MEDS: ASPIRIN EC 81 MG TABLET PO SCH (09:20)
[2020-07-31] MEDS: lisinopriL 5 MG TABLET PO SCH (09:21)
[2020-07-31] MEDS: CHOLECALCIFEROL 1,000 UNIT TABLET PO SCH (09:21)
[2020-07-31] MEDS: PANTOPRAZOLE 40 MG TABLET PO SCH (09:22)
[2020-07-31] MEDS: FERROUS SULFATE 325 MG TABLET PO SCH ×2 (09:22→16:43)
[2020-07-31] MEDS: CYANOCOBALAMIN 500 MCG TABLET PO SCH (09:22)
[2020-07-31] MEDS: FLUDROCORTISONE 0.1 MG TABLET PO SCH (09:23)
[2020-07-31] MEDS: WHEAT DEXTRIN POWDER 244 GM BOTTLE PO SCH (11:51)
[2020-07-31] MEDS: ENOXAPARIN 40 MG/0.4 ML SYRINGE SUBCUT SCH (16:30)
[2020-07-31] MEDS: TERAZOSIN 5 MG CAPSULE PO SCH (21:13)
[2020-08-01] MEDS ORDERED: POTASSIUM CHLORIDE 20 MEQ TABLET PO ONE (07:47)
[2020-08-01 08:50] LABS: Basophils % 1.2 % (0.0-0.8); Eosinophils # 0.2 10*3/uL (0.0-0.87); Eosinophils % 5.6 % (0.00-10.9); Hematocrit 29.9 VOL% (42.0-52.0); Hemoglobin 9.4 GM/DL (14.0-18.0); Immature Granulocytes % 0.3 %; Immature Granulocytes Absolute 0.01 #; Lymphocytes # 0.8 10*3/uL (1.4-4.0); Lymphocytes % 23.9 % (21.2-54.2); Mean Corpuscular HGB Conc 31.4 GM/DL (32-36); Mean Corpuscular Volume 93.4 FL (87-102); Mean Platelet Volume 11.4 FL (9.6-12.0); Monocytes % 10.3 % (1.7-12.7); Neutrophils % 58.7 % (38.7-73.9); Platelet Count 169 T/CUMM (130-400); Red Cell Distribution Width 19.3 % (9.3-17.3); White Blood Count 3.4 T/CUMM (4-12)
[2020-08-01 09:05] LABS: Calcium 8.9 MG/DL (8.5-10.1); Osmolality,Calculated 289.8 MOS/KG (273-304); Potassium 3.8 MMOL/L (3.5-5.1)
[2020-08-01] MEDS: CYANOCOBALAMIN 500 MCG TABLET PO SCH (09:26)
[2020-08-01] MEDS: ASPIRIN EC 81 MG TABLET PO SCH (09:26)
[2020-08-01] MEDS: PANTOPRAZOLE 40 MG TABLET PO SCH (09:26)
[2020-08-01] MEDS: FERROUS SULFATE 325 MG TABLET PO SCH ×2 (09:26→17:06)
[2020-08-01] MEDS: FLUDROCORTISONE 0.1 MG TABLET PO SCH (09:26)
[2020-08-01] MEDS: CHOLECALCIFEROL 1,000 UNIT TABLET PO SCH (09:26)
[2020-08-01] MEDS: WHEAT DEXTRIN POWDER 244 GM BOTTLE PO SCH (11:43)
[2020-08-01] MEDS: POLYETHYLENE GLYCOL POWDER 17 GM PACK PO SCH (11:43)
[2020-08-01] MEDS: lisinopriL 5 MG TABLET PO SCH (11:44)
[2020-08-01] MEDS: ENOXAPARIN 40 MG/0.4 ML SYRINGE SUBCUT SCH (17:06)
[2020-08-01] MEDS: TERAZOSIN 5 MG CAPSULE PO SCH (21:32)
[2020-08-02 05:00] LABS: Basophils % 1.1 % (0.0-0.8); Eosinophils # 0.2 10*3/uL (0.0-0.87); Eosinophils % 6.3 % (0.00-10.9); Hematocrit 28.1 VOL% (42.0-52.0); Hemoglobin 8.8 GM/DL (14.0-18.0); Immature Granulocytes % 0.3 %; Immature Granulocytes Absolute 0.01 #; Mean Corpuscular HGB Conc 31.3 GM/DL (32-36); Mean Corpuscular Volume 94.6 FL (87-102); Mean Platelet Volume 11.1 FL (9.6-12.0); Monocytes % 13.9 % (1.7-12.7); Neutrophils % 52.4 % (38.7-73.9); Platelet Count 165 T/CUMM (130-400); Red Blood Count 2.97 MC/CUMM (3.8-5.5); Red Cell Distribution Width 19.4 % (9.3-17.3); White Blood Count 3.7 T/CUMM (4-12)
[2020-08-02 05:16] LABS: Calcium 8.5 MG/DL (8.5-10.1); Osmolality,Calculated 289.8 MOS/KG (273-304); Potassium 3.9 MMOL/L (3.5-5.1)
[2020-08-02] MEDS: WHEAT DEXTRIN POWDER 244 GM BOTTLE PO SCH (09:09)
[2020-08-02] MEDS: CYANOCOBALAMIN 500 MCG TABLET PO SCH (09:10)
[2020-08-02] MEDS: FLUDROCORTISONE 0.1 MG TABLET PO SCH (09:10)
[2020-08-02] MEDS: POLYETHYLENE GLYCOL POWDER 17 GM PACK PO SCH (09:10)
[2020-08-02] MEDS: PANTOPRAZOLE 40 MG TABLET PO SCH (09:11)
[2020-08-02] MEDS: lisinopriL 5 MG TABLET PO SCH (09:11)
[2020-08-02] MEDS: ASPIRIN EC 81 MG TABLET PO SCH (09:11)
[2020-08-02] MEDS: FERROUS SULFATE 325 MG TABLET PO SCH (09:11)
[2020-08-02] MEDS: CHOLECALCIFEROL 1,000 UNIT TABLET PO SCH (09:11)
[2020-08-02 11:09] VITALS: BP 128/70
== END 2020-08-02 18:46 | DRG 536 ==
LOC: N.ED 13:07 → N.EDINP 15:37 → SUATTDRO 15:37 → N.3E 16:34
PROVIDERS: ADMIT Student in an Organized Health Care Education/Training Program; ATTEND Internal Medicine

== ENCOUNTER 2021-04-03 07:44 | Inpatient (IN) ==
[2021-04-03] MEDS ORDERED: SODIUM CHLORIDE 0.9% 1,000 ML IV STA (08:23)
[2021-04-03 09:09] LABS: Albumin 3.3 G/DL (3.4-5.0); Bilirubin,Total 0.8 MG/DL (0.20-1.00); Calcium 9.6 MG/DL (8.5-10.1); Osmolality,Calculated 306.8 MOS/KG (273-304); Potassium 3.6 MMOL/L (3.5-5.1); Total Protein 6.3 G/DL (6.4-8.2)
[2021-04-03 09:13] LABS: Basophils % 0.3 % (0.0-0.8); Eosinophils % 0.4 % (0.00-10.9); Hematocrit 27.4 VOL% (42.0-52.0); Hemoglobin 8.6 GM/DL (14.0-18.0); Immature Granulocytes % 0.8 %; Immature Granulocytes Absolute 0.06 #; Lymphocytes # 0.5 10*3/uL (1.4-4.0); Lymphocytes % 6.7 % (21.2-54.2); Mean Corpuscular HGB Conc 31.4 GM/DL (32-36); Mean Corpuscular Volume 102.2 FL (87-102); Mean Platelet Volume 11.7 FL (9.6-12.0); Monocytes % 6.7 % (1.7-12.7); Neutrophils % 85.1 % (38.7-73.9); Platelet Count 131 T/CUMM (130-400); Red Blood Count 2.68 MC/CUMM (3.8-5.5); Red Cell Distribution Width 14.9 % (9.3-17.3); White Blood Count 7.5 T/CUMM (4-12)
[2021-04-03 09:54] LABS: Bilirubin,Urine Negative (Negative); Blood, Urine Small mg/dL (Negative); Glucose,Urine (UA) Negative (Negative); Ketones,Urine Negative (Negative); Mucus,Urine Occasional /LPF (Occasional); Nitrite,Urine Negative (Negative); Protein,Urine Negative; RBC,Urine 12 /HPF (0-4); Squamous Epithelial Cell,Urine Occasional /HPF (0-10); Urine Appearance CLEAR (Clear); Urine Color Yellow (Yellow)
[2021-04-03] MEDS ORDERED: ONDANSETRON 4 MG/2 ML VIAL IV PRN (12:56)
[2021-04-03] MEDS ORDERED: ACETAMINOPHEN 325 MG TABLET PO PRN (12:56)
[2021-04-03] MEDS ORDERED: CALCIUM CARBONATE CHEW 500 MG TABLET PO PRN (12:56)
[2021-04-03] MEDS ORDERED: DOCUSATE SODIUM 100 MG CAPSULE PO PRN (12:56)
[2021-04-03] MEDS ORDERED: MECLIZINE 25 MG TABLET PO PRN (13:00)
[2021-04-03] MEDS ORDERED: LORATADINE 10 MG TABLET PO PRN (13:00)
[2021-04-03] MEDS ORDERED: CYANOCOBALAMIN 1000 MCG/1 ML VIAL IM STA (13:00)
[2021-04-03] MEDS: SODIUM CHLORIDE 0.9% 1,000 ML IV SCH ×2 (13:33→23:11)
[2021-04-03] MEDS: RIVAROXABAN 20 MG TABLET PO SCH (18:09)
[2021-04-03] MEDS: TERAZOSIN 5 MG CAPSULE PO SCH (20:40)
[2021-04-04 06:05] LABS: Hematocrit 22.8 VOL% (42.0-52.0); Hemoglobin 7.3 GM/DL (14.0-18.0); Red Blood Count 2.22 MC/CUMM (3.8-5.5)
[2021-04-04 06:06] LABS: Eosinophils # 0.2 10*3/uL (0.0-0.87); Eosinophils % 4.5 % (0.00-10.9); Immature Granulocytes % 0.5 %; Immature Granulocytes Absolute 0.02 #; Lymphocytes # 1.1 10*3/uL (1.4-4.0); Lymphocytes % 27.5 % (21.2-54.2); Mean Corpuscular Volume 102.7 FL (87-102); Mean Platelet Volume 11.9 FL (9.6-12.0); Monocytes % 9.2 % (1.7-12.7); Neutrophils % 57.3 % (38.7-73.9); Platelet Count 118 T/CUMM (130-400); Red Cell Distribution Width 15.1 % (9.3-17.3)
[2021-04-04 06:22] LABS: Calcium 8.2 MG/DL (8.5-10.1); Osmolality,Calculated 304.3 MOS/KG (273-304); Potassium 3.5 MMOL/L (3.5-5.1)
[2021-04-04] MEDS: SODIUM CHLORIDE 0.9% 1,000 ML IV SCH ×2 (09:24→17:50)
[2021-04-04] MEDS: ASPIRIN EC 81 MG TABLET PO SCH (09:26)
[2021-04-04] MEDS: METOPROLOL SUCCINATE XL 25 MG TABLET PO SCH (09:26)
[2021-04-04] MEDS: lisinopriL 10 MG TABLET PO SCH (09:26)
[2021-04-04] MEDS: MULTIVITAMIN (CENTRUM) TABLET PO SCH (09:26)
[2021-04-04] MEDS: CYANOCOBALAMIN 500 MCG TABLET PO SCH (09:26)
[2021-04-04] MEDS: IRON (CARBONYL)/VIT C/B12/FA TABLET PO SCH (09:26)
[2021-04-04] MEDS: CHOLECALCIFEROL 1,000 UNIT TABLET PO SCH (09:26)
[2021-04-04] MEDS: RIVAROXABAN 20 MG TABLET PO SCH (17:41)
[2021-04-04] MEDS: SODIUM CHLORIDE 0.45% 1,000 ML IV SCH (17:43)
[2021-04-04] MEDS: TERAZOSIN 5 MG CAPSULE PO SCH (20:30)
[2021-04-05 05:18] LABS: Eosinophils # 0.2 10*3/uL (0.0-0.87); Eosinophils % 5.2 % (0.00-10.9); Hematocrit 24.8 VOL% (42.0-52.0); Hemoglobin 7.8 GM/DL (14.0-18.0); Immature Granulocytes % 0.5 %; Immature Granulocytes Absolute 0.02 #; Lymphocytes % 25.4 % (21.2-54.2); Mean Corpuscular HGB Conc 31.5 GM/DL (32-36); Mean Corpuscular Volume 102.9 FL (87-102); Mean Platelet Volume 11.9 FL (9.6-12.0); Monocytes % 10.9 % (1.7-12.7); Platelet Count 109 T/CUMM (130-400); Red Blood Count 2.41 MC/CUMM (3.8-5.5); Red Cell Distribution Width 15.2 % (9.3-17.3)
[2021-04-05 05:23] LABS: Basophils % 0.8 % (0.0-0.8); Eosinophils # 0.2 10*3/uL (0.0-0.87); Eosinophils % 4.8 % (0.00-10.9); Hematocrit 24.3 VOL% (42.0-52.0); Hemoglobin 7.8 GM/DL (14.0-18.0); Lymphocytes % 25.8 % (21.2-54.2); Mean Corpuscular HGB Conc 32.1 GM/DL (32-36); Mean Corpuscular Volume 102.1 FL (87-102); Mean Platelet Volume 11.7 FL (9.6-12.0); Monocytes % 10.8 % (1.7-12.7); Neutrophils % 57.8 % (38.7-73.9); Platelet Count 116 T/CUMM (130-400); Red Blood Count 2.38 MC/CUMM (3.8-5.5); Red Cell Distribution Width 15.3 % (9.3-17.3)
[2021-04-05 05:44] LABS: % Iron Saturation 13.6 % (18-50); Calcium 8.5 MG/DL (8.5-10.1); Ferritin 22.8 ng/mL (26-388); Osmolality,Calculated 294.7 MOS/KG (273-304); Potassium 3.5 MMOL/L (3.5-5.1)
[2021-04-05 06:01] LABS: Folate 12.85 NG/ML (5.38-24.0); Vitamin B12 1368 PG/ML (211-911)
[2021-04-05] MEDS: SODIUM CHLORIDE 0.45% 1,000 ML IV SCH ×2 (06:48→08:21)
[2021-04-05 06:54] LABS: Sedimentation Rate-Westergren 14 MM/HR (0-20)
[2021-04-05 08:19] LABS: Hemoglobin A1 (Alkaline) 97.7 % (96.5-98.5); Hemoglobin A2 (Alkaline) 2.3 % (1.5-3.5)
[2021-04-05] MEDS: CHOLECALCIFEROL 1,000 UNIT TABLET PO SCH (10:31)
[2021-04-05] MEDS: lisinopriL 10 MG TABLET PO SCH (10:35)
[2021-04-05] MEDS: METOPROLOL SUCCINATE XL 25 MG TABLET PO SCH (10:35)
[2021-04-05] MEDS: MULTIVITAMIN (CENTRUM) TABLET PO SCH (10:35)
[2021-04-05] MEDS: IRON (CARBONYL)/VIT C/B12/FA TABLET PO SCH (10:36)
[2021-04-05] MEDS: ASPIRIN EC 81 MG TABLET PO SCH (10:36)
[2021-04-05] MEDS: CYANOCOBALAMIN 500 MCG TABLET PO SCH (10:36)
[2021-04-05 12:34] VITALS: BP 120/65
== END 2021-04-05 13:05 | disposition home health service (06) | DRG 683 ==
LOC: EDUNIT# → EDBD → N.ED 07:44 → N.EDINP 12:56 → SUATTDRO 12:56 → N.EDINP 15:46 → N.TELEN 16:13
PROVIDERS: ADMIT Internal Medicine Geriatric Medicine; ATTEND Hospitalist

== ENCOUNTER 2021-05-02 07:39 | Inpatient (IN) ==
[2021-05-02] MEDS ORDERED: SODIUM CHLORIDE 0.9% 500 ML IV STA (08:20)
[2021-05-02 09:18] LABS: Bilirubin,Urine Negative (Negative); Blood, Urine Negative (Negative); Glucose,Urine (UA) Negative (Negative); Hyaline Casts,Urine 3 /LPF (0-3); Ketones,Urine Negative (Negative); Mucus,Urine Occasional /LPF (Occasional); Nitrite,Urine Negative (Negative); Protein,Urine Negative; RBC,Urine 38 /HPF (0-4); Urine Appearance CLEAR (Clear); Urine Color Yellow (Yellow); Urine Specific Gravity 1.014 (1.001-1.035)
[2021-05-02 09:23] LABS: Basophils % 0.9 % (0.0-0.8); Eosinophils % 0.9 % (0.00-10.9); Immature Granulocytes % 1.1 %; Immature Granulocytes Absolute 0.05 #; Lymphocytes # 0.6 10*3/uL (1.4-4.0); Mean Corpuscular HGB Conc 32.4 GM/DL (32-36); Mean Corpuscular Volume 100.3 FL (87-102); Monocytes % 9.2 % (1.7-12.7); Neutrophils % 73.9 % (38.7-73.9); Platelet Count 193 T/CUMM (130-400); Red Blood Count 3.39 MC/CUMM (3.8-5.5); White Blood Count 4.6 T/CUMM (4-12)
[2021-05-02 10:01] LABS: INR 1.4; PT Patient Result 14.9 SECS (10.5-12.0); Partial Thromboplastin Time 33.1 SECS (23.8-32.1)
[2021-05-02 10:14] LABS: Bilirubin,Total 1.5 MG/DL (0.20-1.00); Calcium 9.8 MG/DL (8.5-10.1); Osmolality,Calculated 287.1 MOS/KG (273-304); Potassium 3.8 MMOL/L (3.5-5.1)
[2021-05-02] MEDS ORDERED: GLUCAGON 1 MG VIAL IM PRN (11:08)
[2021-05-02] MEDS ORDERED: ONDANSETRON 4 MG/2 ML VIAL IV PRN (11:09)
[2021-05-02] MEDS ORDERED: ACETAMINOPHEN 325 MG TABLET PO PRN (11:09)
[2021-05-02] MEDS ORDERED: DEXTROSE 10% 25 GM/250 ML BAG IV PRN (11:13)
[2021-05-02] MEDS: LACTATED RINGERS 1,000 ML IV SCH (13:15)
[2021-05-02] MEDS: LACTULOSE 20 GM/30 ML UDCUP PO SCH ×2 (13:15→22:23)
[2021-05-02] MEDS: ZIPRASIDONE 20 MG/1 ML VIAL IM PRN ×2 (13:18→23:34)
[2021-05-02] MEDS: RIVASTIGMINE 4.6 MG/24 HR PATCH TRANSDERM SCH (18:14)
[2021-05-02] MEDS: RIVAROXABAN 10 MG TABLET PO SCH (18:23)
[2021-05-02] MEDS ORDERED: hydrALAZINE 20 MG/1 ML VIAL IV ONE (18:31)
[2021-05-02] MEDS: MEMANTINE 5 MG TABLET PO SCH (22:23)
[2021-05-02] MEDS: TERAZOSIN 5 MG CAPSULE PO SCH (22:23)
[2021-05-03] MEDS: LACTATED RINGERS 1,000 ML IV SCH ×2 (00:15→13:35)
[2021-05-03 05:37] LABS: Basophils % 0.2 % (0.0-0.8); Hematocrit 32.8 VOL% (42.0-52.0); Hemoglobin 10.6 GM/DL (14.0-18.0); Immature Granulocytes % 0.5 %; Immature Granulocytes Absolute 0.06 #; Lymphocytes # 0.3 10*3/uL (1.4-4.0); Lymphocytes % 2.4 % (21.2-54.2); Mean Corpuscular HGB Conc 32.3 GM/DL (32-36); Mean Corpuscular Volume 101.5 FL (87-102); Mean Platelet Volume 10.8 FL (9.6-12.0); Neutrophils % 92.9 % (38.7-73.9); Platelet Count 177 T/CUMM (130-400); Red Blood Count 3.23 MC/CUMM (3.8-5.5); Red Cell Distribution Width 15.1 % (9.3-17.3); White Blood Count 12.5 T/CUMM (4-12)
[2021-05-03 05:53] LABS: Albumin 3.6 G/DL (3.4-5.0); Bilirubin,Total 2.1 MG/DL (0.20-1.00); Osmolality,Calculated 289.8 MOS/KG (273-304); Potassium 3.2 MMOL/L (3.5-5.1); Total Protein 6.8 G/DL (6.4-8.2)
[2021-05-03 06:14] LABS: Hypochromia Slight; Lymphocytes 2 % (20-55); Microcytosis Slight; Platelet Estimate Adequate; Segmented Neutrophils 94 % (50-85); Total Cells Counted 100
[2021-05-03] MEDS: POTASSIUM CHLORIDE 20 MEQ TABLET PO PRN ×4 (09:38→17:37)
[2021-05-03] MEDS: CHOLECALCIFEROL 1,000 UNIT TABLET PO SCH (09:38)
[2021-05-03] MEDS: PANTOPRAZOLE 40 MG TABLET PO SCH (09:38)
[2021-05-03] MEDS: MEMANTINE 5 MG TABLET PO SCH (09:38)
[2021-05-03] MEDS: LACTULOSE 20 GM/30 ML UDCUP PO SCH ×2 (09:39→21:26)
[2021-05-03] MEDS: RIVASTIGMINE 4.6 MG/24 HR PATCH TRANSDERM SCH (09:42)
[2021-05-03] MEDS: METOPROLOL SUCCINATE XL 25 MG TABLET PO SCH (09:44)
[2021-05-03] MEDS ORDERED: POTASSIUM BICARB EFFERVESCENT 20 MEQ TAB.EFF PO ONE (15:12)
[2021-05-03] MEDS: RIVAROXABAN 10 MG TABLET PO SCH (17:35)
[2021-05-03] MEDS: risperiDONE 0.25 MG TABLET PO SCH (17:37)
[2021-05-03] MEDS: TERAZOSIN 5 MG CAPSULE PO SCH (21:34)
[2021-05-03] MEDS: NEOMYCIN/POLYMYXIN/BACITRACIN OINT 0.9 GM PACK TOP SCH (21:35)
[2021-05-04] MEDS: LACTATED RINGERS 1,000 ML IV SCH ×2 (03:00→18:30)
[2021-05-04 05:44] LABS: Basophils % 0.7 % (0.0-0.8); Eosinophils # 0.2 10*3/uL (0.0-0.87); Eosinophils % 2.6 % (0.00-10.9); Hematocrit 30.8 VOL% (42.0-52.0); Hemoglobin 9.9 GM/DL (14.0-18.0); Immature Granulocytes % 0.3 %; Immature Granulocytes Absolute 0.02 #; Lymphocytes # 1.2 10*3/uL (1.4-4.0); Lymphocytes % 20.9 % (21.2-54.2); Mean Corpuscular HGB Conc 32.1 GM/DL (32-36); Mean Platelet Volume 10.9 FL (9.6-12.0); Monocytes % 9.7 % (1.7-12.7); Neutrophils % 65.8 % (38.7-73.9); Platelet Count 140 T/CUMM (130-400); Red Blood Count 3.02 MC/CUMM (3.8-5.5); Red Cell Distribution Width 14.9 % (9.3-17.3); White Blood Count 5.8 T/CUMM (4-12)
[2021-05-04 05:51] LABS: Calcium 8.9 MG/DL (8.5-10.1); Osmolality,Calculated 284.4 MOS/KG (273-304); Potassium 3.9 MMOL/L (3.5-5.1)
[2021-05-04] MEDS: LACTULOSE 20 GM/30 ML UDCUP PO SCH ×2 (09:18→21:52)
[2021-05-04] MEDS: CHOLECALCIFEROL 1,000 UNIT TABLET PO SCH (09:21)
[2021-05-04] MEDS: risperiDONE 0.25 MG TABLET PO SCH (09:21)
[2021-05-04] MEDS: PANTOPRAZOLE 40 MG TABLET PO SCH (09:21)
[2021-05-04] MEDS: METOPROLOL SUCCINATE XL 25 MG TABLET PO SCH (09:21)
[2021-05-04] MEDS: NEOMYCIN/POLYMYXIN/BACITRACIN OINT 0.9 GM PACK TOP SCH ×2 (09:22→21:51)
[2021-05-04] MEDS: RIVASTIGMINE 4.6 MG/24 HR PATCH TRANSDERM SCH (09:22)
[2021-05-04] MEDS ORDERED: TUBERCULIN SKIN TEST 0.1 ML SYRINGE INTRADERM ONE (16:59)
[2021-05-04] MEDS: RIVAROXABAN 10 MG TABLET PO SCH (18:30)
[2021-05-04] MEDS: TERAZOSIN 5 MG CAPSULE PO SCH (21:51)
[2021-05-05] MEDS: LACTATED RINGERS 1,000 ML IV SCH (05:18)
[2021-05-05 05:32] LABS: Basophils % 0.6 % (0.0-0.8); Eosinophils # 0.3 10*3/uL (0.0-0.87); Eosinophils % 4.3 % (0.00-10.9); Hematocrit 30.5 VOL% (42.0-52.0); Hemoglobin 9.9 GM/DL (14.0-18.0); Immature Granulocytes % 0.6 %; Immature Granulocytes Absolute 0.04 #; Lymphocytes % 15.2 % (21.2-54.2); Mean Corpuscular HGB Conc 32.5 GM/DL (32-36); Mean Corpuscular Volume 101.7 FL (87-102); Mean Platelet Volume 11.5 FL (9.6-12.0); Monocytes % 8.5 % (1.7-12.7); Neutrophils % 70.8 % (38.7-73.9); Platelet Count 133 T/CUMM (130-400); Red Cell Distribution Width 14.3 % (9.3-17.3); White Blood Count 6.6 T/CUMM (4-12)
[2021-05-05 05:49] LABS: Calcium 8.9 MG/DL (8.5-10.1); Potassium 3.7 MMOL/L (3.5-5.1)
[2021-05-05] MEDS: METOPROLOL SUCCINATE XL 25 MG TABLET PO SCH (08:32)
[2021-05-05] MEDS: risperiDONE 0.25 MG TABLET PO SCH (08:32)
[2021-05-05] MEDS: RIVASTIGMINE 4.6 MG/24 HR PATCH TRANSDERM SCH (08:32)
[2021-05-05] MEDS: PANTOPRAZOLE 40 MG TABLET PO SCH (08:32)
[2021-05-05] MEDS: CHOLECALCIFEROL 1,000 UNIT TABLET PO SCH (08:32)
[2021-05-05] MEDS: LACTULOSE 20 GM/30 ML UDCUP PO SCH (08:33)
[2021-05-05] MEDS: NEOMYCIN/POLYMYXIN/BACITRACIN OINT 0.9 GM PACK TOP SCH (08:34)
[2021-05-05] MEDS: MENTHOL/ZINC OXIDE OINT 71 GM JAR TOP SCH ×2 (13:58→22:30)
[2021-05-05] MEDS: ZIPRASIDONE 20 MG/1 ML VIAL IM PRN (14:17)
[2021-05-05] MEDS ORDERED: risperiDONE 0.25 MG TABLET PO PRN ×2 (15:41)
[2021-05-05] MEDS ORDERED: HALOPERIDOL 5 MG/ML AMP IM ONE (16:07)
[2021-05-05] MEDS ORDERED: LORazepam 2 MG/1 ML VIAL IV ONE (16:08)
[2021-05-05] MEDS: RIVAROXABAN 10 MG TABLET PO SCH (16:29)
[2021-05-06] MEDS: NEOMYCIN/POLYMYXIN/BACITRACIN OINT 0.9 GM PACK TOP SCH ×3 (01:34→21:52)
[2021-05-06] MEDS: LACTULOSE 20 GM/30 ML UDCUP PO SCH ×3 (01:34→15:29)
[2021-05-06] MEDS: TERAZOSIN 5 MG CAPSULE PO SCH ×2 (01:34→20:22)
[2021-05-06 05:13] LABS: Basophils % 0.4 % (0.0-0.8); Eosinophils % 0.4 % (0.00-10.9); Hematocrit 33.5 VOL% (42.0-52.0); Hemoglobin 10.9 GM/DL (14.0-18.0); Immature Granulocytes % 1.1 %; Immature Granulocytes Absolute 0.09 #; Lymphocytes # 0.2 10*3/uL (1.4-4.0); Lymphocytes % 2.4 % (21.2-54.2); Mean Corpuscular HGB Conc 32.5 GM/DL (32-36); Mean Platelet Volume 11.2 FL (9.6-12.0); Monocytes % 6.4 % (1.7-12.7); Neutrophils % 89.3 % (38.7-73.9); Platelet Count 139 T/CUMM (130-400); Red Blood Count 3.35 MC/CUMM (3.8-5.5); Red Cell Distribution Width 13.9 % (9.3-17.3); White Blood Count 8.5 T/CUMM (4-12)
[2021-05-06 05:39] LABS: Calcium 8.9 MG/DL (8.5-10.1); Osmolality,Calculated 279.5 MOS/KG (273-304); Potassium 3.4 MMOL/L (3.5-5.1)
[2021-05-06 05:53] LABS: Albumin 3.1 G/DL (3.4-5.0); Bilirubin,Direct 1.13 MG/DL (0.0-0.20); Bilirubin,Indirect 1.3 MG/DL (0.0-1.0); Bilirubin,Total 2.4 MG/DL (0.20-1.00); Total Protein 6.6 G/DL (6.4-8.2)
[2021-05-06 05:59] LABS: Acanthocytes Few; Band Neutrophils 3 % (0-10); Hypochromia 1+; Lymphocytes 2 % (20-55); Poikilocytosis 1+; Segmented Neutrophils 89 % (50-85); Total Cells Counted 100
[2021-05-06 06:00] LABS: Microcytosis Slight; Ovalocytes Slight; Target Cells Slight
[2021-05-06 06:01] LABS: Platelet Estimate Adequate
[2021-05-06] MEDS: RIVASTIGMINE 4.6 MG/24 HR PATCH TRANSDERM SCH (08:26)
[2021-05-06] MEDS: PANTOPRAZOLE 40 MG TABLET PO SCH (08:27)
[2021-05-06] MEDS: CHOLECALCIFEROL 1,000 UNIT TABLET PO SCH (08:27)
[2021-05-06] MEDS: METOPROLOL SUCCINATE XL 25 MG TABLET PO SCH (08:27)
[2021-05-06] MEDS: risperiDONE 0.25 MG TABLET PO SCH (08:27)
[2021-05-06] MEDS: MENTHOL/ZINC OXIDE OINT 71 GM JAR TOP SCH ×2 (08:46→21:51)
[2021-05-06] MEDS: PIPERACILLIN/TAZOBACTAM 3,375 MG in SODIUM CHLORIDE 0.9% 100 ML IV SCH ×2 (13:07→21:52)
[2021-05-06] MEDS ORDERED: ACETAMINOPHEN 650 MG SUPP RECTAL PRN (15:14)
[2021-05-06] MEDS: RIVAROXABAN 10 MG TABLET PO SCH (16:38)
[2021-05-06] MEDS ORDERED: LACTATED RINGERS 1,000 ML IV ONE (16:47)
[2021-05-06] MEDS: LACTATED RINGERS 1,000 ML IV SCH (17:33)
[2021-05-06] MEDS: risperiDONE 1 MG TABLET PO SCH (17:51)
[2021-05-06] MEDS ORDERED: risperiDONE 0.25 MG TABLET PO SCH (18:00)
[2021-05-06 19:02] LABS: Bacteria,Urine Occasional /HPF (Few); Bilirubin,Urine Negative (Negative); Blood, Urine Large mg/dL (Negative); Glucose,Urine (UA) Negative (Negative); Ketones,Urine 5 mg/dL (Negative); Mucus,Urine Few /LPF (Occasional); Nitrite,Urine Negative (Negative); Protein,Urine 100 MG/DL; RBC,Urine 187 /HPF (0-4); Squamous Epithelial Cell,Urine Occasional /HPF (0-10); Urine Appearance CLEAR (Clear); Urine Color Amber (Yellow); Urine Specific Gravity 1.018 (1.001-1.035)
[2021-05-07] MEDS: LACTATED RINGERS 1,000 ML IV SCH ×2 (04:09→18:12)
[2021-05-07] MEDS: PIPERACILLIN/TAZOBACTAM 3,375 MG in SODIUM CHLORIDE 0.9% 100 ML IV SCH ×3 (04:10→21:01)
[2021-05-07 06:51] LABS: Basophils % 0.2 % (0.0-0.8); Eosinophils % 0.2 % (0.00-10.9); Hematocrit 31.6 VOL% (42.0-52.0); Hemoglobin 10.1 GM/DL (14.0-18.0); Immature Granulocytes % 0.3 %; Immature Granulocytes Absolute 0.02 #; Lymphocytes # 0.6 10*3/uL (1.4-4.0); Lymphocytes % 9.3 % (21.2-54.2); Mean Platelet Volume 10.9 FL (9.6-12.0); Monocytes % 7.8 % (1.7-12.7); Neutrophils % 82.2 % (38.7-73.9); Platelet Count 138 T/CUMM (130-400); Red Blood Count 3.16 MC/CUMM (3.8-5.5); Red Cell Distribution Width 13.8 % (9.3-17.3)
[2021-05-07 07:05] LABS: Calcium 8.5 MG/DL (8.5-10.1); Osmolality,Calculated 291.3 MOS/KG (273-304); Potassium 3.6 MMOL/L (3.5-5.1)
[2021-05-07 07:34] LABS: Acanthocytes Few; Anisocytosis 2+; Band Neutrophils 30 % (0-10); Burr Cells 1+; Eosinophils 1 % (0-10); Lymphocytes 9 % (20-55); Platelet Estimate Adequate; Poikilocytosis 1+; Segmented Neutrophils 52 % (50-85); Total Cells Counted 100
[2021-05-07 07:35] LABS: Tear Drop Cells Few
[2021-05-07] MEDS ORDERED: risperiDONE 0.25 MG TABLET PO SCH (09:00)
[2021-05-07] MEDS: risperiDONE 1 MG TABLET PO SCH ×2 (10:55→18:13)
[2021-05-07] MEDS: METOPROLOL SUCCINATE XL 25 MG TABLET PO SCH (10:55)
[2021-05-07] MEDS: MENTHOL/ZINC OXIDE OINT 71 GM JAR TOP SCH ×2 (13:21→21:03)
[2021-05-07] MEDS: LACTULOSE 20 GM/30 ML UDCUP PO SCH (13:21)
[2021-05-07] MEDS: PANTOPRAZOLE 40 MG TABLET PO SCH (13:22)
[2021-05-07] MEDS: RIVASTIGMINE 4.6 MG/24 HR PATCH TRANSDERM SCH (13:22)
[2021-05-07] MEDS: CHOLECALCIFEROL 1,000 UNIT TABLET PO SCH (13:22)
[2021-05-07] MEDS: NEOMYCIN/POLYMYXIN/BACITRACIN OINT 0.9 GM PACK TOP SCH ×2 (13:22→21:03)
[2021-05-08] MEDS: LACTATED RINGERS 1,000 ML IV SCH ×3 (01:06→22:21)
[2021-05-08] MEDS: PIPERACILLIN/TAZOBACTAM 3,375 MG in SODIUM CHLORIDE 0.9% 100 ML IV SCH ×3 (03:59→21:22)
[2021-05-08 06:15] LABS: Basophils % 0.4 % (0.0-0.8); Eosinophils # 0.2 10*3/uL (0.0-0.87); Eosinophils % 2.4 % (0.00-10.9); Hematocrit 28.7 VOL% (42.0-52.0); Hemoglobin 9.3 GM/DL (14.0-18.0); Immature Granulocytes % 0.9 %; Immature Granulocytes Absolute 0.06 #; Lymphocytes # 0.8 10*3/uL (1.4-4.0); Lymphocytes % 11.2 % (21.2-54.2); Mean Corpuscular HGB Conc 32.4 GM/DL (32-36); Mean Corpuscular Volume 101.4 FL (87-102); Mean Platelet Volume 11.2 FL (9.6-12.0); Monocytes % 9.4 % (1.7-12.7); Neutrophils % 75.7 % (38.7-73.9); Platelet Count 138 T/CUMM (130-400); Red Blood Count 2.83 MC/CUMM (3.8-5.5); Red Cell Distribution Width 13.8 % (9.3-17.3); White Blood Count 6.8 T/CUMM (4-12)
[2021-05-08 06:34] LABS: Calcium 9.1 MG/DL (8.5-10.1); Osmolality,Calculated 288.5 MOS/KG (273-304); Potassium 3.6 MMOL/L (3.5-5.1)
[2021-05-08 08:04] LABS: Acanthocytes 1+; Anisocytosis 2+; Band Neutrophils 13 % (0-10); Burr Cells 2+; Eosinophils 3 % (0-10); Lymphocytes 12 % (20-55); Ovalocytes Few; Platelet Estimate Adequate; Poikilocytosis 1+; Segmented Neutrophils 64 % (50-85); Total Cells Counted 100
[2021-05-08] MEDS: CHOLECALCIFEROL 1,000 UNIT TABLET PO SCH (09:25)
[2021-05-08] MEDS: PANTOPRAZOLE 40 MG TABLET PO SCH (09:26)
[2021-05-08] MEDS: LACTULOSE 20 GM/30 ML UDCUP PO SCH (09:26)
[2021-05-08] MEDS: risperiDONE 1 MG TABLET PO SCH ×2 (09:26→17:29)
[2021-05-08] MEDS: MENTHOL/ZINC OXIDE OINT 71 GM JAR TOP SCH ×2 (09:26→21:10)
[2021-05-08] MEDS: RIVASTIGMINE 4.6 MG/24 HR PATCH TRANSDERM SCH (09:26)
[2021-05-08] MEDS: METOPROLOL TARTRATE 25 MG TABLET PO SCH ×2 (09:26→21:10)
[2021-05-08] MEDS: NEOMYCIN/POLYMYXIN/BACITRACIN OINT 0.9 GM PACK TOP SCH ×2 (09:26→21:11)
[2021-05-09] MEDS ORDERED: ACETAMINOPHEN 325 MG TABLET PO PRN (01:45)
[2021-05-09] MEDS: PIPERACILLIN/TAZOBACTAM 3,375 MG in SODIUM CHLORIDE 0.9% 100 ML IV SCH ×2 (05:48→14:11)
[2021-05-09 06:48] LABS: Basophils # 0.1 10*3/uL (0.0-0.2); Basophils % 0.8 % (0.0-0.8); Eosinophils # 0.2 10*3/uL (0.0-0.87); Eosinophils % 2.7 % (0.00-10.9); Hematocrit 29.4 VOL% (42.0-52.0); Hemoglobin 9.4 GM/DL (14.0-18.0); Immature Granulocytes % 1.7 %; Lymphocytes # 0.8 10*3/uL (1.4-4.0); Lymphocytes % 13.1 % (21.2-54.2); Mean Platelet Volume 12.1 FL (9.6-12.0); Monocytes % 9.4 % (1.7-12.7); Neutrophils % 72.3 % (38.7-73.9); Platelet Count 134 T/CUMM (130-400); Red Blood Count 2.94 MC/CUMM (3.8-5.5); Red Cell Distribution Width 13.8 % (9.3-17.3); White Blood Count 5.9 T/CUMM (4-12)
[2021-05-09 07:07] LABS: Burr Cells Slight; Eosinophils 2 % (0-10); Hypochromia 1+; Lymphocytes 19 % (20-55); Microcytosis 1+; Ovalocytes Slight; Platelet Estimate Adequate; Segmented Neutrophils 72 % (50-85); Total Cells Counted 100
[2021-05-09 07:08] LABS: Calcium 8.6 MG/DL (8.5-10.1); Potassium 3.2 MMOL/L (3.5-5.1)
[2021-05-09] MEDS: PANTOPRAZOLE 40 MG TABLET PO SCH (08:55)
[2021-05-09] MEDS: METOPROLOL TARTRATE 25 MG TABLET PO SCH (08:55)
[2021-05-09] MEDS: MENTHOL/ZINC OXIDE OINT 71 GM JAR TOP SCH (08:55)
[2021-05-09] MEDS: risperiDONE 1 MG TABLET PO SCH (08:55)
[2021-05-09] MEDS: RIVASTIGMINE 4.6 MG/24 HR PATCH TRANSDERM SCH (08:55)
[2021-05-09] MEDS: CHOLECALCIFEROL 1,000 UNIT TABLET PO SCH (08:55)
[2021-05-09] MEDS: NEOMYCIN/POLYMYXIN/BACITRACIN OINT 0.9 GM PACK TOP SCH (08:56)
[2021-05-09] MEDS: LACTULOSE 20 GM/30 ML UDCUP PO SCH (08:56)
[2021-05-09] MEDS ORDERED: RIVAROXABAN 10 MG TABLET PO SCH (09:00)
[2021-05-09 11:48] VITALS: BP 99/61
[2021-05-09] MEDS: LACTATED RINGERS 1,000 ML IV SCH (14:11)
== END 2021-05-09 15:10 | DRG 56 ==
LOC: EDUNIT# → EDBD → N.ED 07:39 → N.EDINP 11:08 → SUATTDRO 11:08 → N.3E 18:04
PROVIDERS: ADMIT Internal Medicine; ATTEND Hospitalist